=== PATIENT | female | born 1935 | race Caucasian/White ===

== ENCOUNTER 2016-03-21 10:13 | Outpatient (CLI) | payer MEDICARE, OTHER ==
[2014-05-16 18:43] VITALS: BP 152/67
== END 2016-03-21 10:14 ==
LOC: LAB 10:13
PROVIDERS: ATTEND Internal Medicine Cardiovascular Disease
DX: E78.2 Mixed hyperlipidemia (principal)
CPT/HCPCS: 36415; 80061

== ENCOUNTER 2016-08-17 10:56 | Outpatient (CLI) | payer MEDICARE, OTHER ==
[2014-05-16 18:43] VITALS: BP 152/67
[2016-08-17 11:22] LABS: BASOPHILS % 0.5 (0.0-1.5); EOSINOPHILS % 3.6 % (0.0-6.8); MEAN CORPUSCULAR HEMOGLOBIN 29.2 pg (28.0-34.0); MEAN CORPUSCULAR VOLUME 87.4 fl (80.0-100.0); NEUTROPHILS # 4.4 # k/uL (1.4-7.7)
[2016-08-19 03:41] LABS: BIRCH TREE <0.10 kU/L; DOG DANDER <0.10 kU/L
== END 2016-08-17 10:57 ==
LOC: LABRHC 10:56
PROVIDERS: ATTEND Family Medicine
DX: J30.1 Allergic rhinitis due to pollen (principal); R05 Cough; E11.9 Type 2 diabetes mellitus without complications
CPT/HCPCS: 82785; 83036; 85025; 86003

== ENCOUNTER 2016-12-07 08:39 | Outpatient (CLI) | payer MEDICARE, OTHER ==
[2014-05-16 18:43] VITALS: BP 152/67
== END 2016-12-07 08:40 ==
LOC: LAB 08:39
PROVIDERS: ATTEND Internal Medicine Cardiovascular Disease
DX: E78.2 Mixed hyperlipidemia (principal)
CPT/HCPCS: 36415; 80048; 80061

== ENCOUNTER 2017-10-18 14:08 | Outpatient (CLI) | payer MEDICARE, OTHER ==
[2014-05-16 18:43] VITALS: BP 152/67
[2017-10-18 14:53] LABS: eGFR (African) 43; eGFR (Non-African) 35
== END 2017-10-18 14:10 ==
LOC: LAB 14:08
PROVIDERS: ATTEND Family Medicine
DX: E11.9 Type 2 diabetes mellitus without complications (principal)
CPT/HCPCS: 36415; 80053; 80061; 83036

== ENCOUNTER 2017-10-19 14:53 | Outpatient (CLI) | payer MEDICARE, OTHER ==
[2014-05-16 18:43] VITALS: BP 152/67
--- NOTE | 2017-10-19 18:53 | Diagnostic Imaging Report ---
LILIA YAÑEZ [id number] [facility].[address] [id number] Report Submission Date: Oct 19, 2017 6:06:26 PM CDT Patient Study Name: KOLE OG Date: Oct 19, 2017 2:56:05 PM CDT Modality Type: DX Gender: F Description: PELVIS : 33 Institution: Physician: LILIA YAÑEZ Right hip, two views History: Chronic right hip pain. 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 The hardware is in appropriate position and alignment. There is no evidence of loosening or acute abnormality. Vascular calcifications are present. Impression: 1. No acute osseous abnormality. 2. Right hip arthroplasty without loosening. Electronically signed on Oct 19, 2017 6:06:26 PM CDT by: Gurwinder ARREDONDO
== END 2017-10-19 14:55 ==
LOC: RAD 14:53
PROVIDERS: ATTEND Family Medicine
DX: M25.559 Pain in unspecified hip (principal)
CPT/HCPCS: 73502

== ENCOUNTER 2018-06-24 10:39 | Outpatient (CLI) | payer OTHER ==
[2014-05-16 18:43] VITALS: BP 152/67
--- NOTE | 2018-06-24 11:24 | Diagnostic Imaging Report ---
LILIA YAÑEZ [facility] [address] [facility] [address] [place] [address]. [id number] Report Submission Date: Jun 24, 2018 11:20:22 AM CDT Patient Study Name: KOLE OG Date: Jun 24, 2018 10:45:06 AM CDT Modality Type: DX Gender: F Description: ABD SERIES PA CHEST : 34 Institution: [facility] Physician: LILIA YAÑEZ EXAMINATION: ABD SERIES PA CHEST HISTORY: BILATERAL FLANK PAIN AND VOMITING X 1 MONTH (Hx) COMPARISON: None FINDINGS: A left subclavian approach cardiac device has four intact leads. There is left basilar atelectasis. Otherwise there is no focal consolidation, pleural effusion, or pneumothorax. The cardiomediastinal silhouette is normal. There are no abnormally dilated bowel loops. Round opacities superimpose both kidneys. Additional lamellated round opacities superimpose the region of the gallbladder. The visible osseous structures are intact. There is lumbar levoscoliosis. Right hip total arthroplasty has been performed. IMPRESSION: 1. Round opacities superimposing the regions of the kidneys and gallbladder, which may represent nephrolithiasis and cholelithiasis, respectively. This could be confirmed with CT of the abdomen and pelvis. 2. No acute pulmonary process. 3. No evidence of bowel obstruction. Electronically signed on Jun 24, 2018 11:20:22 AM CDT by: Trey ARREDONDO
== END 2018-06-24 10:45 ==
LOC: RAD 10:39
PROVIDERS: ATTEND Nurse Practitioner Family
DX: R93.5 Abnormal findings on diagnostic imaging of other abdominal regions, including retroperitoneum (principal); R10.12 Left upper quadrant pain
CPT/HCPCS: 74022

== ENCOUNTER 2018-06-26 09:04 | Outpatient (CLI) | payer OTHER ==
[2014-05-16 18:43] VITALS: BP 152/67
--- NOTE | 2018-06-26 12:47 | Diagnostic Imaging Report ---
<p>Your browser does not support iframes.</p> GHANSHYAM SRINIVASAN - ISAÍAS [facility] [id number] [facility] [address] [place], [place]. [address] Report Submission Date: Jun 26, 2018 10:31:10 AM CDT Patient Study Name: KOLE OG Date: Jun 26, 2018 9:48:35 AM CDT Modality Type: CT\SR Gender: F Description: CT ABD PELVIS W/ CON : 33 Institution: [facility] Physician: GHANSHYAM SRINIVASAN EXAMINATION: CT ABD PELVIS W/ CON HISTORY: LEFT UPPER QUAD PAIN TECHNIQUE: CT of the abdomen and pelvis was performed with contrast according to standard protocol. COMPARISON: None FINDINGS: The aorta is normal in caliber. The aorta and coronary arteries are atherosclerotic. There are tree in bud opacities in the lung bases, predominantly in the right lower lobe. The heart size is normal. Cardiac device leads are partially imaged. The liver enhances homogeneously. There are large gallstones in the gallbladder without evidence of cholecystitis. The intrahepatic and extrahepatic bile ducts are nondilated. There are multiple calcified granulomas in the spleen. A splenule is noted. The pancreas and adrenal glands are normal. The kidneys enhance symmetrically. There is no evidence of hydronephrosis. There is a tiny punctate nonobstructive calculus in the lower pole of the left kidney. There is a small hiatal hernia. There is a diverticulum of the second portion of the duodenum. There is colonic diverticulosis without evidence of diverticulitis. The small bowel and colon are normal in caliber without evidence of wall thickening or obstruction. The appendix appears normal. No free air or free fluid is identified in the abdomen. There is no abdominal lymphadenopathy. The urinary bladder is distended with fluid and appears normal. The uterus appears normal. No free fluid is seen in the pelvis. Bone windows demonstrate no suspicious lytic or blastic lesions. The visible osseous structures are intact. Right hip arthroplasty has been performed. IMPRESSION: 1. No acute process identified in the abdomen or pelvis. 2. Right lower lobe tree in bud opacities, likely representing aspiration and/or pneumonia. 3. Cholelithiasis and diverticulosis without evidence of cholecystitis or diverticulitis, respectively. Nonobstructive left nephrolithiasis. 4. Small hiatal hernia. Electronically signed on Jun 26, 2018 10:31:10 AM CDT by: Trey ARREDONDO
== END 2018-06-26 10:43 ==
LOC: RAD 09:04
PROVIDERS: ATTEND Nurse Practitioner Family
DX: R91.8 Other nonspecific abnormal finding of lung field (principal); K80.20 Calculus of gallbladder without cholecystitis without obstruction; K57.90 Diverticulosis of intestine, part unspecified, without perforation or abscess without bleeding; K44.9 Diaphragmatic hernia without obstruction or gangrene; R10.12 Left upper quadrant pain
CPT/HCPCS: 74177; Q9967